=== PATIENT | male | born 1995 | race Caucasian/White ===

== ENCOUNTER 2017-12-22 16:48 | Outpatient (CLI) ==
[2015-07-13 13:13] VITALS: BMI 31.4
== END 2017-12-22 16:49 | disposition home or self-care (01) ==
LOC: LAB 16:48
PROVIDERS: ATTEND Emergency Medicine
DX: R07.2 Precordial pain (principal); F33.1 Major depressive disorder, recurrent, moderate; F41.9 Anxiety disorder, unspecified
CPT/HCPCS: 36415; 80053; 84443; 85025

== ENCOUNTER 2018-01-21 08:31 | Outpatient (CLI) ==
[2015-07-13 13:13] VITALS: BMI 31.4
== END 2018-01-21 08:32 | disposition home or self-care (01) ==
LOC: CAR 08:31
PROVIDERS: ATTEND Emergency Medicine
DX: R00.2 Palpitations (principal)
CPT/HCPCS: 93227

== ENCOUNTER 2018-02-04 12:01 | Outpatient (CLI) ==
[2015-07-13 13:13] VITALS: BMI 31.4
--- NOTE | 2018-02-04 13:09 | CT ---
EXAM: CT of the chest without contrast History: Short of breath Comparison: None available. Technique: Multiplanar CT images through the thorax were obtained without the administration of IV c ontrast Findings: Heart size is normal. No pericardial effusion. Great vessels are grossly unremarkable on this noncontrast exam. Minimal residual thymic tissue. No pathologically enlarged thoracic lymph n odes. A few small calcified mediastinal lymph nodes. Calcified granulomas are seen scattered within the lungs. No consolidation. No pleural fluid and no pneumothorax. No suspicious lung masses or l scotty nodules. Within the visualized upper abdomen, no acute findings. No acute osseous abnormalities. Impression: 1. No acute intrathoracic process. 2. Old granulomatous disease8
== END 2018-02-04 12:02 | disposition home or self-care (01) ==
LOC: RAD 12:01
PROVIDERS: ATTEND Emergency Medicine
DX: J06.9 Acute upper respiratory infection, unspecified (principal); R06.02 Shortness of breath

== ENCOUNTER 2018-03-31 23:14 | Emergency (ER) ==
[2018-03-31 23:24] VITALS: BMI 38.4
--- NOTE | 2018-03-31 23:38 | ED.PDOC ---
General ED Provider: Dr. CARLOS FLORES Chief Complaint: Non-specific Complaint Stated Complaint: Right arm pain x several months. Says pain is worse today than normal. Hurts down to wrist. More pain with movement. Rates pain 8/10. No known injury. Time Seen by Physician: 23:37 Mode of Arrival: Walk-In Information Source: Patient Exam Limitations: No limitations [facility] T[facility] Documentation Reviewed and Agree: Yes Reviewed sepsis parameters & appropriate labs ordered?: No System Inflammatory Response Syndrome: Pulse >90 BPM Sepsis Protocol: For patient's 13 years and over: Temp is 96.8 and below OR 101 and greater Pulse >90 BPM Resp >20/minute Acutely Altered Mental Status Are patient's symptoms suggestive of a new infection, such as: -Pneumonia -Skin, Soft Tissue -Endocarditis -UTI -Bone, Joint Infection -Implantable Device -Acute Abdominal Infection -Wound Infection -Meningitis -Blood Stream Catheter Infection -Unknown System Inflammatory Response Syndrome: Not Applicable Review of Systems - Review Of Systems Constitutional: Reports: No symptoms Eyes: Reports: No symptoms Ears, Nose, Mouth, Throat: Reports: No symptoms Respiratory: Reports: No symptoms Cardiac: Reports: No symptoms GI: Reports: No symptoms : Reports: No symptoms Musculoskeletal: Reports: No symptoms Skin: Reports: No symptoms Neurological: Reports: No symptoms Endocrine: Reports: No symptoms Hematologic/Lymphatic: Reports: No symptoms All Other Systems: Reviewed and Negative Past Medical History - Past Medical History Previously Healthy: Yes Endocrine: Reports: None Cardiovascular: Reports: None Respiratory: Reports: None Hematological: Reports: None Gastrointestinal: Reports: None Genitourinary: Reports: None Neuro/Psych: Reports: None Musculoskeletal: Reports: None Cancer: Reports: None - Surgical History General Surgical History: Reports: None - Family History Family History: Reports: Unknown - Social History Smoking Status: Current every day smoker, Heavy tobacco smoker, Chews tobacco Hx Substance Use: No Alcohol Screening: Occasionally - Immunizations Tetanus Shot up to Date: Yes Physical Exam - Physical Exam Appearance: Well-appearing, No pain distress, Well-nourished Eyes: ENRIQUE, EOMI, Conjunctiva clear ENT: Ears normal, Nose normal, Oropharynx normal Respiratory: Airway patent, Breath sounds clear, Breath sounds equal, Respirations nonlabored Cardiovascular: RRR, Pulses normal, No rub, No murmur GI/: Soft, Nontender, No masses, Bowel sounds normal, No Organomegaly Musculoskeletal: Normal strength, ROM intact, No edema, No calf tenderness Skin: Warm, Dry, Normal color Neurological: Sensation intact, Motor intact, Reflexes intact, Cranial nerves intact, Alert, Oriented Psychiatric: Affect appropriate, Mood appropriate Critical Care Note - Critical Care Note Total Time (mins): 0 Course - Course Hematology/Chemistry: 03/31/18 23:50 Orders, Labs, Meds: Lab Review 03/31/18 23:50 Sodium 140 Potassium 4.0 Chloride 108 H Carbon Dioxide 22 Anion Gap 14.0 BUN 18 Creatinine 1.47 H Estimated GFR (MDRD) 60.00 BUN/Creatinine Ratio 12.24 Glucose 87 Calcium 9.4 Total Bilirubin 0.3 AST 15 ALT 22 Alkaline Phosphatase 82 Total Protein 6.8 Albumin 4.0 Globulin 2.8 Albumin/Globulin Ratio 1.43 TSH 3.809 Orders Category Date Time Status COMPREHENSIVE METABOLIC PANEL Stat LAB 03/31/18 23:50 Completed TSH [THYROID STIMULATING HORMONE] Stat LAB 03/31/18 23:50 Completed Ibuprofen [Motrin] MEDS 04/01/18 00:13 Discontinued 800 mg PO ONCE STA Medications Discontinued Medications Generic Name Dose Route Start Last Admin Trade Name Freq PRN Reason Stop Dose Admin Ibuprofen 800 mg 04/01/18 00:13 04/01/18 00:23 Motrin PO 04/01/18 00:14 800 mg ONCE STA Administration Vital Signs: Temp Pulse Resp BP Pulse Ox 03/31/18 23:46 100.1 F H 84 16 118/74 99 03/31/18 23:15 98.9 F 104 H 20 147/95 H 96 Departure - Departure Time of Disposition: 00:13 Disposition: HOME SELF-CARE Discharge Problem: Renal insufficiency, mild Musculoskeletal arm pain Qualifiers: Laterality: right Qualified Code(s): M79.601 - Pain in right arm Instructions: Musculoskeletal Pain (ED), Dehydration (ED) Condition: Stable Pt referred to PMD for follow-up: Yes IPMP verified?: No Additional Instructions: Push fluids take Motrin as needed for pain Follow up with PCPin 3 days. Prescriptions: Ibuprofen [Motrin] 600 mg PO Q6H PRN #30 tablet PRN Reason: Analgesia Allergies/Adverse Reactions: Allergies citalopram hydrobromide [From [employer]] Adverse Reaction (Verified 03/31/18 23:25) States, "makes me feel some confusion" Home Medications: Ambulatory Orders Ibuprofen [Motrin] 600 mg PO Q6H PRN #30 tablet 04/01/18 Disposition Discussed With: Patient, Family
[2018-03-31 23:46] VITALS: TEMP 100.1
[2018-04-01] MEDS ORDERED: MOTRIN PO STA (00:13)
[2018-04-01 02:58] VITALS: BP 140/88
== END 2018-04-01 00:38 | disposition home or self-care (01) ==
LOC: ED 23:14
DX: M79.601 Pain in right arm (principal); N28.9 Disorder of kidney and ureter, unspecified; F17.210 Nicotine dependence, cigarettes, uncomplicated
CPT/HCPCS: 36415; 80053; 84443; 99283

== ENCOUNTER 2018-04-28 17:56 | Emergency (ER) ==
[2018-04-28 18:05] VITALS: BP 145/92; TEMP 98.7; BMI 37.6
== END 2018-04-28 18:15 | disposition left against medical advice (07) ==
LOC: ED 17:56
DX: R21 Rash and other nonspecific skin eruption (principal); Z72.0 Tobacco use